=== PATIENT | female | born 1990 | race Caucasian/White ===

== ENCOUNTER 2024-08-15 17:13 | Emergency (ER) | payer OTHER ==
[~2024-08-15] VITALS: Ht 152.4 cm; Wt 97.5 kg
[~2024-08-15 17:13] MED LIST: BUTALB-ACETAMI1 EAC2 PO; DIAZEPAM10 MG PO; DULOXETINE HCL40 MG PO; IBUPROFEN600 MG PO; MELOXICAM15 MG PO; NORETHINDRONE0.35 MG PO; OMEPRAZOLE20 MG PO; TRAMADOL HCL50 MG PO; TYLENOL EXTRA500 MG PO
[2024-08-15 17:33] LABS: BASOPHILS 0.9 % (0-2); EOSINOPHILS 0.8 % (0-6); HEMATOCRIT 45.7 % (35.0-50.0); HEMOGLOBIN 15.8 g/dL (12.0-18.0); LYMPHOCYTES 18.8 % (24-44); MCH 32.2 (27-36); MCHC 34.5 g/dl (30-36); MCV 93.5 fl (81-99); MONOCYTES 9.4 % (0-12); NEUTROPHILS 70.1 % (39-80); PLATELET COUNT 484 K/uL (140-440); RBC 4.89 M/ul (4.3-5.7); RDW 13.9 (10.5-15.0)
[2024-08-15 17:55] LABS: ALBUMIN/GLOBULIN RATIO 1.11 (1.1-2.4); ANION GAP 14.5 (7-21); BILIRUBIN, TOTAL 0.4 ng/dL (0.2-1.0); CALCIUM 8.8 mg/dL (8.5-10.1); POTASSIUM 3.5 mmol/L (3.5-5.1); PROTEIN, TOTAL 7.6 g/dL (6.4-8.2)
[2024-08-15 18:22] LABS: INFLUENZA B NAA NEGATIVE (NEGATIVE); RESPIRATORY SYNCYTIAL VIR NAA NEGATIVE (NEGATIVE)
[2024-08-15 18:53] VITALS: BP 120/71
--- NOTE | 2024-08-18 13:07 | EKG ---
[facility] [address] [facility] [place], [place] [address] Signed Sinus tachycardia Low voltage QRS Septal infarct , age undetermined Abnormal ECG No previous ECGs available Confirmed by Syed Sinha MD ([id number]) on 08/18/2024 1:07:29 PM Electronically Signed By: SYED SINHA MD 08/18/24 1307 PATIENT NAME: GIANLUCA SULTANA Electrocardiogram DATE OF : 89 PHYSICIAN: SYED SINHA MD REPORT #: [id number] REPORT IS CONFIDENTIAL AND NOT TO BE RELEASED WITHOUT AUTHORIZATION
== END 2024-08-15 18:30 | disposition home or self-care (01) ==
LOC: ED 17:13
PROVIDERS: Emergency Medicine
DX: J10.1 Influenza due to other identified influenza virus with other respiratory manifestations (principal); R07.9 Chest pain, unspecified; E03.9 Hypothyroidism, unspecified; Z79.899 Other long term (current) drug therapy
CPT/HCPCS: 36415; 71045; 80053; 83880; 84484; 85025; 85379; 87502; 93005; 93010; 99285-25; U0002

== ENCOUNTER 2024-12-30 23:15 | Emergency (ER) | payer OTHER ==
[~2024-12-30] VITALS: Ht 152.4 cm; Wt 110.0 kg
[2024-12-30] MEDS ORDERED: LORazepam 2 MG/ML VIAL IM ONE (23:30)
[2024-12-30] MEDS ORDERED: diphenhydrAMINE HCL 50 MG/ML VIAL IM ONE (23:30)
[2024-12-30] MEDS ORDERED: LACTATED RINGER'S 1,000 ML IV ONE (23:30)
[2024-12-30] MEDS ORDERED: LEVOTHYROXINE75 MCG PO (23:38)
[2024-12-30] MEDS ORDERED: ESCITALOPRAM OX20 MG PO (23:39)
[2024-12-30 23:56] LABS: BASOPHILS 0.5 % (0.1-1.2); EOSINOPHILS 0.5 % (0.7-5.8); HEMATOCRIT 43.5 % (34.1-44.9); HEMOGLOBIN 14.5 g/dL (11.2-15.7); LYMPHOCYTES 35.3 % (19.3-51.7); MCH 30.3 PG (25.6-32.2); MCHC 33.3 g/dL (32.2-35.5); MCV 90.8 fL (79.4-94.8); NEUTROPHILS 56.5 % (34.0-71.1); PLATELET COUNT 475 K/uL (182-369); RBC 4.79 M/uL (3.93-5.22)
[2024-12-31 00:11] LABS: ALBUMIN/GLOBULIN RATIO 1.29 (1.1-2.4); ALCOHOL, MEDICAL <3 ng/dL (<3); ALKALINE PHOSPHATASE 91 U/L (46-116); ALT (SGPT) 39 U/L (14-59); ANION GAP 12.7 (7-21); AST (SGOT) 21 U/L (15-37); BILIRUBIN, TOTAL 0.5 mg/dL (0.2-1.0); BUN/CREATININE RATIO 4.76 (6.0-28.6); CALCIUM 9.3 mg/dL (8.5-10.1); CARBON DIOXIDE 26 mmol/L (21-32); CHLORIDE 106 mmol/L (98-107); CREATINE KINASE 375 U/L (26-192); CREATININE, SERUM 1.05 mg/dL (0.55-1.02); GLOMERULAR FILTRATION RATE,EST 72 mL/min (>60); POTASSIUM 3.7 mmol/L (3.5-5.1); PROTEIN, TOTAL 7.1 g/dL (6.4-8.2); UREA NITROGEN 5 mg/dL (7-18)
[2024-12-31] MEDS ORDERED: fentaNYL citrate 100 MCG/2 ML VIAL IV ONE (01:00)
[2024-12-31 02:45] LABS: BILIRUBIN, URINE NEGATIVE (negative); BLOOD/HGB, URINE NEGATIVE (Negative); KETONE, URINE NEGATIVE (Negative); LEUK ESTERASE, URINE TRACE (negative); NITRITE, URINE NEGATIVE (negative); PH, URINE 6.5 (5-7)
[2024-12-31 02:50] LABS: EPITHELIAL CELLS, URINE SQUAMOUS 4+ /lpf (0-1+)
[2024-12-31 02:51] LABS: BACTERIA, URINE 4+ /hpf (negative); CASTS, URINE NONE SEEN \\lpf; COLLECTION TYPE, URINE CLEAN CATCH; CRYSTALS, URINE NONE SEEN (0-1+); RED BLOOD CELLS, URINE 0-1 /hpf (0-5); REFLEX CULTURE, URINE No (No)
[2024-12-31] MEDS ORDERED: KETOROLAC TROMETHAMINE 30 MG/ML VIAL IV ONE (03:00)
[2024-12-31 03:03] LABS: AMPHETAMINES, URINE NEGATIVE (NEGATIVE); BARBITURATES, URINE NEGATIVE (NEGATIVE); BENZODIAZEPINE, URINE NEGATIVE (NEGATIVE); BUPRENORPHINE, URINE NEGATIVE (NEGATIVE); CANNABINOID, URINE POSITIVE (NEGATIVE); COCAINE, URINE NEGATIVE (NEGATIVE); ECSTASY, URINE NEGATIVE (NEGATIVE); FENTANYL, URINE POSITIVE (NEGATIVE); METHADONE, URINE NEGATIVE (NEGATIVE); OPIATES, URINE NEGATIVE (NEGATIVE); OXYCODONE, URINE NEGATIVE (NEGATIVE); PHENCYCLIDINE, URINE NEGATIVE (NEGATIVE)
[2024-12-31] MEDS ORDERED: SODIUM CHLORIDE 0.9% 1,000 ML IV PRN (03:30)
[2024-12-31 06:55] VITALS: BP 128/75
--- NOTE | 2025-01-01 14:07 | EKG ---
[facility] [address] [facility] [place], [place] [address] Signed Sinus tachycardia Otherwise normal ECG When compared with ECG of 15-AUG-2024 17:17, Criteria for Septal infarct are no longer present Confirmed by Connor Sinha MD ([id number]) on 01/01/2025 2:07:08 PM Electronically Signed By: CONNOR SINHA MD 01/01/25 1407 PATIENT NAME: KAYYGIANLUCAANNETTE CUMMINS Electrocardiogram DATE OF : 89 PHYSICIAN: CONNOR SINHA MD REPORT #: [id number] REPORT IS CONFIDENTIAL AND NOT TO BE RELEASED WITHOUT AUTHORIZATION
== END 2024-12-31 06:55 | disposition home or self-care (01) ==
LOC: ED 23:15
PROVIDERS: Internal Medicine
DX: R56.9 Unspecified convulsions (principal); M62.838 Other muscle spasm; T50.905A Adverse effect of unspecified drugs, medicaments and biological substances, initial encounter; R51.9 Headache, unspecified; Z79.890 Hormone replacement therapy; Z79.899 Other long term (current) drug therapy
CPT/HCPCS: 36415; 70450; 71045; 80053; 80307; 81001; 82550; 84443; 84484; 84703; 85025; 87088; 93005; 93010; 96374; 96375; 99284-25; G0480; J1200; J1885; J2060; J3010; J7030; J7121